=== PATIENT | male | born 1975 | race Hispanic/Latino ===

== ENCOUNTER → 2025-01-27 | Outpatient (CLI) | payer OTHER ==
--- NOTE | 2025-01-27 16:56 | HMCIMG ---
Exam Type: LUMBAR SPINE 2-3VWS Clinical Information: HERNIATED DISC,SCIATICA Comparison: None Findings: Exam of the lumbosacral spine demonstrates no evidence of fracture or subluxation. There are severe spondylytic changes. There is straightening of the normal lumbar lordosis consistent with spasm. The disc spaces are intact. The facet joints show severe degenerative changes with significant hypertrophy causing neural foramina narrowing at all levels bilaterally. Impression: Severe spondylitic changes and degenerative changes of the apophyseal joints as noted.
--- NOTE | 2025-01-27 17:01 | HMCIMG ---
Exam Type: HIP BILAT 2VW Clinical Information: HIP IMPAIRMENT BURSITIS Comparison: None Findings: The bone examination is unremarkable. No fractures or dislocations are seen. No radiopaque foreign bodies are noted. Soft tissues are preserved. IMPRESSION: Normal examination.
== END | disposition home or self-care (01) ==
LOC: RAH 16:08
PROVIDERS: ATTEND Internal Medicine
DX: M47.816 Spondylosis without myelopathy or radiculopathy, lumbar region (principal); M70.72 Other bursitis of hip, left hip; M70.71 Other bursitis of hip, right hip; M48.061 Spinal stenosis, lumbar region without neurogenic claudication; M51.26 Other intervertebral disc displacement, lumbar region
CPT/HCPCS: 72100; 73521